=== PATIENT | female | born 1935 | race Caucasian/White ===

== ENCOUNTER → 2016-07-18 | Outpatient (CLI) | payer MEDICARE ==
--- NOTE | 2016-07-18 12:32 | REPMRS ---
Patient History The patient states she has not had a clinical breast exam in over a year. Patient is postmenopausal and has history of other cancer at age 72. Family history of pancreatic cancer in father and colorectal cancer in sister at age 50 or over. Took hormonal contraceptives for 10 years. Taking estrogen for 11 years 3 months. Digital Woman Screen Mammo: July 18, 2016 - Exam #: [id number] Bilateral CC and MLO view(s) were taken. Technologist: Vicenta Hernandez, Technologist Prior study comparison: July 18, 2015, digital woman screen mammo performed at [facility]. July 13, 2014, digital woman screen mammo performed at [facility]. July 12, 2013, bilateral bilat screen digital mammo, performed at [facility] ([facility] FINDINGS: There are scattered fibroglandular densities. There has been no change in the appearance of the mammogram from the prior studies. There is a mild amount of scattered fibroglandular density which is fairly symmetric. There is no interval development of dominant mass, architectural distortion, or clustered microcalcification suggestive of malignancy. ASSESSMENT: BI-RADS/ACR category 1 mammogram. Negative. Recommendation Routine screening mammogram in 1 year (for women over age 40). This mammogram was interpreted with the aid of an FDA-approved computer-aided dectection system. Electronically Signed By: Natan Moraes MD 07/18/16 1794
== END ==
LOC: M WHC 10:15
PROVIDERS: ATTEND Physician Assistant
DX: Z12.31 Encounter for screening mammogram for malignant neoplasm of breast (principal)

== ENCOUNTER → 2016-09-03 | Outpatient (REF) | payer MEDICARE ==
[2016-09-03 15:46] LABS: ALBUMIN 3.6 GM/DL (3.2-5.2); ALBUMIN/GLOBULIN RATIO 1.29 (1.00-1.93); ALKALINE PHOSPHATASE 71 U/L (45-117); ALT/SGPT 25 U/L (12-78); ANION GAP 10 MEQ/L (8-16); AST/SGOT 16 U/L (15-37); BILIRUBIN,TOTAL 0.6 MG/DL (0.2-1.0); BLOOD UREA NITROGEN 20 MG/DL (7-18); CALCIUM LEVEL 8.6 MG/DL (8.8-10.2); CARBON DIOXIDE LEVEL 25 MEQ/L (21-32); CHLORIDE LEVEL 102 MEQ/L (98-107); CHOLESTEROL LEVEL 191 MG/DL (<200); CREATININE FOR GFR 0.91 MG/DL (0.55-1.02); GLOMERULAR FILTRATION RATE > 60.0 (>32); GLUCOSE, FASTING 130 MG/DL (83-110); POTASSIUM SERUM 4.2 MEQ/L (3.5-5.1); SODIUM LEVEL 137 MEQ/L (136-145); TOTAL PROTEIN 6.4 GM/DL (6.4-8.2); TRIGLYCERIDES LEVEL 165 MG/DL (<150)
== END ==
LOC: M SFHCLACO 08:24
PROVIDERS: ATTEND Physician Assistant
DX: I12.9 Hypertensive chronic kidney disease with stage 1 through stage 4 chronic kidney disease, or unspecified chronic kidney disease (principal); N18.3 Chronic kidney disease, stage 3 (moderate); E78.2 Mixed hyperlipidemia

== ENCOUNTER 2016-11-07 11:19 | Outpatient (CLI) | payer MEDICARE ==
[~2016-11-07] VITALS: Ht 157.5 cm; Wt 79.8 kg
[~2016-11-07 11:19] MED LIST: ACET50TA PO; AMLO10TA2 PO; BIMA01SOL OU; BROM500T2 PO; CALC-136 PO; CHOLTAB6 PO; COMB0.2S OU; DIOV320T3 PO; ESTR1CRE PO; META48.54 PO; MULT1CHW39 PO; OMEP40CA2 PO; SENITAB2 PO; SODI5OPD OD; SPIR25TA2 PO; VITAD1000T PO; ZINCCAP PO; [UNRECOGNIZED DRUG - OTHER] OD
[2016-11-07] MEDS ORDERED: NS 1,000 ML IV SCH (14:30)
[2016-11-07] MEDS ORDERED: PROPOFOL 200 MG/20 ML VIAL As Ordered ONE (14:36)
[2016-11-07] MEDS ORDERED: LIDOCAINE 2% INJ 100 MG/5 ML SDV (FOR ANES.) As Ordered ONE (14:36)
--- NOTE | 2016-11-07 14:50 | ROOR ---
Patient Name: Sulma Baptiste Procedure Date: 11/07/2016 2:34 PM Date of : 1935 Age: 81 Room: [facility] Gender: Female Note Status: Finalized Procedure: Upper GI endoscopy Indications: Follow-up of Arcos's esophagus Providers: Isaac POLLACK MD Referring MD: DARIUS Goldman PA-C Requesting Provider: Medicines: Monitored Anesthesia Care Complications: No immediate complications. Procedure: Pre-Anesthesia Assessment: - The heart rate, respiratory rate, oxygen saturations, blood pressure, adequacy of pulmonary ventilation, and response to care were monitored throughout the procedure. The Endoscope was introduced through the mouth, and advanced to the second part of duodenum. The upper GI endoscopy was accomplished without difficulty. The patient tolerated the procedure well. Findings: The Z-line was irregular and was found 35 cm from the incisors. This was biopsied with a cold forceps for histology. The exam of the esophagus was otherwise normal. A medium-sized hiatal hernia was present. The entire examined stomach was normal. The examined duodenum was normal. Impression: - Z-line irregular, 35 cm from the incisors. Biopsied. - Medium-sized hiatal hernia. - Normal stomach. - Normal examined duodenum. Recommendation: - Await pathology results. - Due to possible side effects, I will change you from Omeprazole to Pantoprazole. Will use 20 mg daily dose for short segment barretts. - (the script was sent to your pharmacy on file) - Repeat upper endoscopy in 3 years for surveillance. Isaac Pollack MD Isaac POLLACK MD 11/07/2016 2:50:03 PM This report has been signed electronically. Number of Addenda: 0 Note Initiated On: 11/07/2016 2:34 PM Estimated Blood Loss: Estimated blood loss: none.
[2016-11-07 15:30] VITALS: BP 141/71
== END 2016-11-07 15:34 | disposition home or self-care (01) ==
LOC: M OPP 11:19
PROVIDERS: ATTEND Internal Medicine Gastroenterology
DX: K22.70 Barrett's esophagus without dysplasia (principal); K22.8 Other specified diseases of esophagus; K44.9 Diaphragmatic hernia without obstruction or gangrene; I12.9 Hypertensive chronic kidney disease with stage 1 through stage 4 chronic kidney disease, or unspecified chronic kidney disease; E78.5 Hyperlipidemia, unspecified; R01.1 Cardiac murmur, unspecified; R12 Heartburn; M19.90 Unspecified osteoarthritis, unspecified site; M81.0 Age-related osteoporosis without current pathological fracture; Z78.0 Asymptomatic menopausal state; N18.3 Chronic kidney disease, stage 3 (moderate); H40.9 Unspecified glaucoma; Z87.891 Personal history of nicotine dependence; Z88.8 Allergy status to other drugs, medicaments and biological substances; Z91.048 Other nonmedicinal substance allergy status; Z79.899 Other long term (current) drug therapy; Z80.0 Family history of malignant neoplasm of digestive organs; Z80.8 Family history of malignant neoplasm of other organs or systems

== ENCOUNTER → 2017-01-02 | Outpatient (CLI) | payer MEDICARE ==
--- NOTE | 2017-01-02 13:22 | REP ---
BILATERAL HIP SERIES: FOUR VIEWS. HISTORY: Bilateral hip pain. FINDINGS: AP and frog-leg views of each hip demonstrate mild acetabular spurring superiorly on both sides, left slightly more prominent than right. Femoral heads are smooth and rounded. Hip joint spaces are preserved. Periarticular soft tissues are unremarkable. No erosive changes seen. IMPRESSION: Mild bilateral hip joint osteoarthritis. No acute abnormality. Signed by Yusuf Moraes MD 01/02/2017 05:21 P
== END ==
LOC: M RAD 11:15
PROVIDERS: ATTEND Physician Assistant
DX: M16.0 Bilateral primary osteoarthritis of hip (principal)

== ENCOUNTER → 2017-03-04 | Outpatient (REF) | payer MEDICARE ==
[2017-03-04 16:05] LABS: ALBUMIN 3.8 GM/DL (3.2-5.2); ALBUMIN/GLOBULIN RATIO 1.27 (1.00-1.93); ALKALINE PHOSPHATASE 69 U/L (45-117); ALT/SGPT 22 U/L (12-78); ANION GAP 8 MEQ/L (8-16); AST/SGOT 16 U/L (7-37); BILIRUBIN,TOTAL 0.5 MG/DL (0.2-1.0); BLOOD UREA NITROGEN 23 MG/DL (7-18); CALCIUM LEVEL 8.9 MG/DL (8.8-10.2); CARBON DIOXIDE LEVEL 27 MEQ/L (21-32); CHLORIDE LEVEL 101 MEQ/L (98-107); CHOLESTEROL LEVEL 181 MG/DL (<200); CREATININE FOR GFR 0.89 MG/DL (0.55-1.02); GLOMERULAR FILTRATION RATE > 60.0 (>32); GLUCOSE, FASTING 117 MG/DL (83-110); POTASSIUM SERUM 4.2 MEQ/L (3.5-5.1); SODIUM LEVEL 136 MEQ/L (136-145); TOTAL PROTEIN 6.8 GM/DL (6.4-8.2); TRIGLYCERIDES LEVEL 157 MG/DL (<150)
== END ==
LOC: M SFHCLACO 08:27
PROVIDERS: ATTEND Physician Assistant
DX: E78.2 Mixed hyperlipidemia (principal); I12.9 Hypertensive chronic kidney disease with stage 1 through stage 4 chronic kidney disease, or unspecified chronic kidney disease; N18.3 Chronic kidney disease, stage 3 (moderate); R73.9 Hyperglycemia, unspecified

== ENCOUNTER → 2017-07-21 | Outpatient (CLI) | payer MEDICARE | LOC: M WHC 10:21 | DX: Z12.31 Encounter for screening mammogram for malignant neoplasm of breast (principal); R92.1 Mammographic calcification found on diagnostic imaging of breast | CPT/HCPCS: 77067 ==

== ENCOUNTER → 2017-09-02 | Outpatient (REF) | payer MEDICARE ==
[2017-09-02 15:11] LABS: ESTIMATED AVERAGE GLUCOSE 137 MG/DL (60-110); HEMOGLOBIN A1c 6.4 %
[2017-09-02 15:34] LABS: ANION GAP 8 MEQ/L (8-16); BLOOD UREA NITROGEN 19 MG/DL (7-18); CALCIUM LEVEL 8.4 MG/DL (8.8-10.2); CARBON DIOXIDE LEVEL 26 MEQ/L (21-32); CHLORIDE LEVEL 105 MEQ/L (98-107); CREATININE FOR GFR 0.89 MG/DL (0.55-1.30); GLOMERULAR FILTRATION RATE > 60.0 (>32); GLUCOSE, FASTING 123 MG/DL (70-100); POTASSIUM SERUM 4.1 MEQ/L (3.5-5.1); SODIUM LEVEL 139 MEQ/L (136-145)
[2017-09-02 15:35] LABS: ALBUMIN 3.8 GM/DL (3.2-5.2); ALBUMIN/GLOBULIN RATIO 1.23 (1.00-1.93); ALKALINE PHOSPHATASE 74 U/L (45-117); ALT/SGPT 25 U/L (12-78); AST/SGOT 15 U/L (7-37); BILIRUBIN,TOTAL 0.5 MG/DL (0.2-1.0); CHOLESTEROL LEVEL 184 MG/DL (<200); CHOLESTEROL RISK RATIO 3.118 (<5); HDL CHOLESTEROL 59 MG/DL (>40); LDL CHOLESTEROL 91.2 MG/DL (<100); NON-HDL-C 125 MG/DL; TOTAL PROTEIN 6.9 GM/DL (6.4-8.2); TRIGLYCERIDES LEVEL 169 MG/DL (<150)
== END ==
LOC: M SFHCLACO 08:12
DX: E78.2 Mixed hyperlipidemia (principal); I12.9 Hypertensive chronic kidney disease with stage 1 through stage 4 chronic kidney disease, or unspecified chronic kidney disease; N18.3 Chronic kidney disease, stage 3 (moderate); R73.9 Hyperglycemia, unspecified
CPT/HCPCS: 80053

== ENCOUNTER → 2017-10-30 | Outpatient (REF) | payer MEDICARE ==
[2017-10-30 14:57] LABS: ANION GAP 11 MEQ/L (8-16); BLOOD UREA NITROGEN 13 MG/DL (7-18); CALCIUM LEVEL 8.8 MG/DL (8.8-10.2); CARBON DIOXIDE LEVEL 25 MEQ/L (21-32); CHLORIDE LEVEL 98 MEQ/L (98-107); GLOMERULAR FILTRATION RATE > 60.0 (>32); GLUCOSE, FASTING 117 MG/DL (70-100); POTASSIUM SERUM 4.2 MEQ/L (3.5-5.1); SODIUM LEVEL 134 MEQ/L (136-145)
== END ==
LOC: M SFHCLACO 08:20
DX: R60.9 Edema, unspecified (principal); I10 Essential (primary) hypertension
CPT/HCPCS: 80048

== ENCOUNTER → 2018-03-04 | Outpatient (REF) | payer MEDICARE ==
[2018-03-04 13:36] LABS: ANION GAP 6 MEQ/L (8-16); BLOOD UREA NITROGEN 21 MG/DL (7-18); CALCIUM LEVEL 9.1 MG/DL (8.8-10.2); CARBON DIOXIDE LEVEL 30 MEQ/L (21-32); CHLORIDE LEVEL 101 MEQ/L (98-107); CREATININE FOR GFR 0.88 MG/DL (0.55-1.30); GLOMERULAR FILTRATION RATE > 60.0 (>32); GLUCOSE, FASTING 123 MG/DL (70-100); POTASSIUM SERUM 4.6 MEQ/L (3.5-5.1); SODIUM LEVEL 137 MEQ/L (136-145)
== END ==
LOC: M LAB REF 13:05
DX: N18.3 Chronic kidney disease, stage 3 (moderate) (principal)
CPT/HCPCS: 80048

== ENCOUNTER → 2018-03-17 | Outpatient (REF) | payer MEDICARE ==
[2018-03-17 13:28] LABS: BASO # 0.1 10^3/uL (0.0-0.2); BASO % 0.5 % (0.0-1.0); EOS # 0.1 10^3/uL (0.0-0.50); EOS % 0.5 % (0.0-3.0); HEMATOCRIT 39.8 % (36.0-47.0); HEMOGLOBIN 13.4 g/dl (12.0-15.5); IMMATURE GRANULOCYTE % 0.7 % (0-3.0); LYMPH # 1.3 10^3/uL (1.5-4.5); LYMPH % 12.1 % (24.0-44.0); MEAN CORPUSCULAR HEMOGLOBIN 32.3 pg (27.0-33.0); MEAN CORPUSCULAR HGB CONC 33.7 g/dl (32.0-36.5); MEAN CORPUSCULAR VOLUME 95.9 fl (80.0-96.0); MONO # 1.1 10^3/uL (0.0-0.8); MONO % 10.2 % (0.0-5.0); NEUTROPHILS # 8.3 10^3/uL (1.8-7.7); PLATELET COUNT, AUTOMATED 338 10^3/uL (150-450); RED BLOOD COUNT 4.15 10^6/uL (4.00-5.40); RED CELL DISTRIBUTION WIDTH 12.4 % (11.5-14.5)
[2018-03-17 13:50] LABS: C REACTIVE PROTEIN QUANTITATIV 1.96 MG/DL (0.00-0.30); RHEUMATOID FACTOR QUANT < 10.0 IU/ML (<15.0)
[2018-03-17 13:50] LABS: URIC ACID 6.6 MG/DL (2.6-6.0)
[2018-03-17 14:05] LABS: ERYTHROCYTE SEDIMENTATION RATE 15 mm/hr (0-30)
[2018-03-19 00:31] LABS: CYCLIC CITRULLINATED PEPTIDE 6 units (0-19)
[2018-03-19 00:31] LABS: ANA (HEP2) Negative (.); Lyme Disease IgG/IgM Antibodie <0.91 ISR (0.00-0.90); Lyme Disease IgM Ab Quantitati <0.80 index (0.00-0.79)
== END ==
LOC: M SFHCADAM 11:02
DX: M25.511 Pain in right shoulder (principal); M25.512 Pain in left shoulder
CPT/HCPCS: 84550

== ENCOUNTER → 2018-06-29 | Outpatient (REF) | payer MEDICARE ==
[~2018-06-29] MED LIST changes: -ACET50TA PO; -AMLO10TA2 PO; +AMLO10TA5 PO; +MAPA500T2 PO; +SPIR-10 PO; -SPIR25TA2 PO
== END ==
LOC: M SFHCPLAZ 15:45
PROVIDERS: ATTEND Dermatology
DX: C44.529 Squamous cell carcinoma of skin of other part of trunk (principal)

== ENCOUNTER → 2018-07-02 | Outpatient (CLI) | payer MEDICARE ==
[~2018-07-02] MED LIST changes: +SODI3.5O3 OD; -[UNRECOGNIZED DRUG - OTHER] OD
--- NOTE | 2018-07-02 15:59 | REP ---
Clinical: Arthritis. Technique: Internal rotation, external rotation, and Y view of the right and left shoulder. Findings: Bilateral shoulders demonstrate mild cortical irregularity and very subtle spurring at the acromioclavicular joints along with subtle blunting to the ossified glenoid rims. Findings are relatively symmetric. The subacromial spaces are normal. No periarticular calcifications or loose bodies are identified. Impression: Mild degenerative changes primarily involving the acromioclavicular joints. Electronically Signed by Jori Bedolla MD 07/02/2018 03:50 P
--- NOTE | 2018-07-02 16:02 | REP ---
Clinical: Arthritis. Technique: AP, lateral, bilateral oblique views of the right and left hand. Findings: Generalized age-related osteodystrophy is appreciated bilaterally. Moderate relatively symmetric osteoarthritic degenerative changes are appreciated. Findings include subchondral sclerosis, joint space narrowing, and subtle marginal spurring involving the distal interphalangeal joints and to a somewhat lesser extent the proximal interphalangeal joints. Increase sclerosis along the radial surface is also noted with mild radiocarpal joint space narrowing (right greater than left). Remainder examination appears relatively normal for age. There also appears to be small old right ulnar styloid fracture. Impression: Essentially mild/moderate osteoarthritic changes given the patient's age. Electronically Signed by Jori Bedolla MD 07/02/2018 03:53 P
== END ==
LOC: M SMT 15:16
PROVIDERS: ATTEND Internal Medicine Rheumatology
DX: M15.9 Polyosteoarthritis, unspecified (principal)

== ENCOUNTER → 2018-07-02 | Outpatient (REF) | payer MEDICARE ==
[~2018-07-02] MED LIST changes: -MULT1CHW39 PO; +MULT200T7 PO
[2018-07-02 18:11] LABS: ALT/SGPT 19 U/L (12-78); BILIRUBIN,TOTAL 0.3 MG/DL (0.2-1.0); BLOOD UREA NITROGEN 26 MG/DL (7-18); C REACTIVE PROTEIN QUANTITATIV 0.55 MG/DL (0.00-0.30); CALCIUM LEVEL 8.9 MG/DL (8.8-10.2); CARBON DIOXIDE LEVEL 28 MEQ/L (21-32); CHLORIDE LEVEL 102 MEQ/L (98-107); GLOMERULAR FILTRATION RATE 56.4 (>32); GLUCOSE, FASTING 114 MG/DL (70-100); POTASSIUM SERUM 4.5 MEQ/L (3.5-5.1); RHEUMATOID FACTOR QUANT < 10.0 IU/ML (<15.0); SODIUM LEVEL 137 MEQ/L (136-145)
[2018-07-02 18:19] LABS: BASO # 0.1 10^3/uL (0.0-0.2); BASO % 0.6 % (0.0-1.0); EOS # 0.2 10^3/uL (0.0-0.50); EOS % 2.3 % (0.0-3.0); HEMATOCRIT 39.1 % (36.0-47.0); LYMPH # 2.8 10^3/uL (1.5-4.5); LYMPH % 28.8 % (24.0-44.0); MEAN CORPUSCULAR HEMOGLOBIN 32.1 pg (27.0-33.0); MEAN CORPUSCULAR HGB CONC 33.2 g/dl (32.0-36.5); MEAN CORPUSCULAR VOLUME 96.5 fl (80.0-96.0); MONO % 10.2 % (0.0-5.0); NEUTROPHILS # 5.5 10^3/uL (1.8-7.7); NEUTROPHILS % 57.3 % (36.0-66.0); PLATELET COUNT, AUTOMATED 315 10^3/uL (150-450); RED BLOOD COUNT 4.05 10^6/uL (4.00-5.40); WHITE BLOOD COUNT 9.7 10^3/uL (4.0-10.0)
[2018-07-02 20:02] LABS: ERYTHROCYTE SEDIMENTATION RATE 8 mm/hr (0-30)
== END ==
LOC: M SFHCPLAZ 14:55
PROVIDERS: ATTEND Internal Medicine Rheumatology
DX: M15.9 Polyosteoarthritis, unspecified (principal)

== ENCOUNTER → 2018-07-23 | Outpatient (CLI) | payer MEDICARE ==
--- NOTE | 2018-07-23 11:04 | REPMRS ---
Patient History The patient states she has not had a clinical breast exam in over a year. Patient is postmenopausal and has history of melanoma at age 72. Family history of colorectal cancer at age 50 or over in sister, pancreatic cancer in father. Took hormonal contraceptives for 10 years. Took estrogen for 12 years 3 months. 3D TOMOSYNTHESIS WAS PERFORMED. Digital Woman Screen Mammo: July 23, 2018 - Exam #: [id number] Bilateral CC and MLO view(s) were taken. Technologist: Gerri Troy, Technologist Prior study comparison: July 21, 2017, digital woman screen mammo performed at [facility]. July 18, 2016, digital woman screen mammo performed at [facility]. FINDINGS: There are scattered fibroglandular densities. There has been no change in the appearance of the mammogram from the prior studies. There is a mild amount of residual fibroglandular tissue which is fairly symmetric. There is no interval development of dominant mass, architectural distortion, or clustered microcalcification suggestive of malignancy. Assessment: BI-RADS/ACR category 1 mammogram. Negative Mammogram. Recommendation Routine screening mammogram in 1 year (for women over age 40). This mammogram was interpreted with the aid of an FDA-approved computer-aided dectection system. Electronically Signed By: Vishnu Amos MD 07/23/18 [id number]
== END ==
LOC: M WHC 09:45
PROVIDERS: ATTEND Physician Assistant Medical
DX: Z12.31 Encounter for screening mammogram for malignant neoplasm of breast (principal); Z78.0 Asymptomatic menopausal state; Z85.828 Personal history of other malignant neoplasm of skin; Z80.0 Family history of malignant neoplasm of digestive organs; Z92.0 Personal history of contraception; Z92.23 Personal history of estrogen therapy

== ENCOUNTER → 2018-08-28 | Outpatient (REF) | payer MEDICARE ==
[2018-08-28 13:45] LABS: BLOOD UREA NITROGEN 20 MG/DL (7-18); CALCIUM LEVEL 8.8 MG/DL (8.8-10.2); CARBON DIOXIDE LEVEL 26 MEQ/L (21-32); CHLORIDE LEVEL 101 MEQ/L (98-107); CREATININE FOR GFR 0.88 MG/DL (0.55-1.30); GLOMERULAR FILTRATION RATE > 60.0 (>32); GLUCOSE, FASTING 121 MG/DL (70-100); POTASSIUM SERUM 4.5 MEQ/L (3.5-5.1); SODIUM LEVEL 136 MEQ/L (136-145)
== END ==
LOC: M LABDRWAD 12:58
PROVIDERS: ATTEND Internal Medicine
DX: N18.3 Chronic kidney disease, stage 3 (moderate) (principal)

== ENCOUNTER → 2018-08-28 | Outpatient (REF) | payer MEDICARE ==
[2018-08-28 12:49] LABS: BASO # 0.1 10^3/uL (0.0-0.2); BASO % 0.8 % (0.0-1.0); EOS # 0.2 10^3/uL (0.0-0.50); EOS % 2.3 % (0.0-3.0); HEMATOCRIT 38.6 % (36.0-47.0); HEMOGLOBIN 13.1 g/dl (12.0-15.5); LYMPH # 1.6 10^3/uL (1.5-4.5); LYMPH % 24.5 % (24.0-44.0); MEAN CORPUSCULAR HEMOGLOBIN 31.5 pg (27.0-33.0); MEAN CORPUSCULAR HGB CONC 33.9 g/dl (32.0-36.5); MEAN CORPUSCULAR VOLUME 92.8 fl (80.0-96.0); MONO # 0.6 10^3/uL (0.0-0.8); MONO % 9.5 % (0.0-5.0); NEUTROPHILS # 4.2 10^3/uL (1.8-7.7); NEUTROPHILS % 62.4 % (36.0-66.0); PLATELET COUNT, AUTOMATED 318 10^3/uL (150-450); RED BLOOD COUNT 4.16 10^6/uL (4.00-5.40); WHITE BLOOD COUNT 6.7 10^3/uL (4.0-10.0)
[2018-08-28 13:39] LABS: ALBUMIN 3.6 GM/DL (3.2-5.2); ALT/SGPT 21 U/L (12-78); BILIRUBIN,TOTAL 0.8 MG/DL (0.2-1.0); BLOOD UREA NITROGEN 20 MG/DL (7-18); CALCIUM LEVEL 8.9 MG/DL (8.8-10.2); CARBON DIOXIDE LEVEL 27 MEQ/L (21-32); CHLORIDE LEVEL 101 MEQ/L (98-107); CHOLESTEROL LEVEL 187 MG/DL (<200); CREATININE FOR GFR 0.92 MG/DL (0.55-1.30); GLOMERULAR FILTRATION RATE > 60.0 (>32); GLUCOSE, FASTING 124 MG/DL (70-100); HDL CHOLESTEROL 57 MG/DL (>40); LDL CHOLESTEROL 98 MG/DL (<100); NON-HDL-C 130 MG/DL; POTASSIUM SERUM 4.4 MEQ/L (3.5-5.1); SODIUM LEVEL 136 MEQ/L (136-145); TOTAL PROTEIN 6.9 GM/DL (6.4-8.2); TRIGLYCERIDES LEVEL 162 MG/DL (<150)
== END ==
LOC: M SFHCADAM 09:48
PROVIDERS: ATTEND Physician Assistant Medical
DX: E78.2 Mixed hyperlipidemia (principal); K21.9 Gastro-esophageal reflux disease without esophagitis; N18.3 Chronic kidney disease, stage 3 (moderate)

== ENCOUNTER → 2018-09-25 | Outpatient (REF) | payer MEDICARE | LOC: M LAB REF 12:00 | PROVIDERS: ATTEND Physician Assistant Medical | DX: R19.4 Change in bowel habit (principal) ==

== ENCOUNTER → 2019-03-03 | Outpatient (REF) | payer MEDICARE ==
[~2019-03-03] MED LIST changes: +CHOL100029 PO; -OMEP40CA2 PO; +OMEP40CA97 PO; -VITAD1000T PO
== END ==
LOC: M SFHCPLAZ 16:28
PROVIDERS: ATTEND Physician Assistant Medical
DX: R19.7 Diarrhea, unspecified (principal)

== ENCOUNTER → 2019-03-12 | Outpatient (REF) | payer MEDICARE ==
[2019-03-12 13:40] LABS: BASO % 0.4 % (0.0-1.0); EOS # 0.2 10^3/uL (0.0-0.5); EOS % 1.9 % (0.0-3.0); HEMATOCRIT 40.2 % (36.0-47.0); HEMOGLOBIN 13.1 g/dl (12.0-15.5); LYMPH # 1.6 10^3/uL (1.5-5.0); LYMPH % 17.6 % (24.0-44.0); MEAN CORPUSCULAR HEMOGLOBIN 31.9 pg (27.0-33.0); MEAN CORPUSCULAR HGB CONC 32.6 g/dl (32.0-36.5); MEAN CORPUSCULAR VOLUME 97.8 fl (80.0-96.0); MONO # 0.7 10^3/uL (0.0-0.8); MONO % 7.9 % (0.0-5.0); NEUTROPHILS # 6.7 10^3/uL (1.5-8.5); NEUTROPHILS % 71.8 % (36.0-66.0); PLATELET COUNT, AUTOMATED 312 10^3/uL (150-450); RED BLOOD COUNT 4.11 10^6/uL (4.00-5.40); WHITE BLOOD COUNT 9.3 10^3/uL (4.0-10.0)
[2019-03-12 13:54] LABS: ALBUMIN 3.5 GM/DL (3.2-5.2); ALT/SGPT 17 U/L (12-78); BILIRUBIN,TOTAL 0.6 MG/DL (0.2-1.0); BLOOD UREA NITROGEN 16 MG/DL (7-18); CARBON DIOXIDE LEVEL 26 MEQ/L (21-32); CHLORIDE LEVEL 103 MEQ/L (98-107); CHOLESTEROL LEVEL 172 MG/DL (<200); CHOLESTEROL RISK RATIO 3.127 (<5); CREATININE FOR GFR 0.89 MG/DL (0.55-1.30); GLOMERULAR FILTRATION RATE > 60.0 (>32); GLUCOSE, FASTING 117 MG/DL (70-100); HDL CHOLESTEROL 55 MG/DL (>40); LDL CHOLESTEROL 87 MG/DL (<100); NON-HDL-C 117 MG/DL; POTASSIUM SERUM 4.3 MEQ/L (3.5-5.1); SODIUM LEVEL 137 MEQ/L (136-145); THYROID STIMULATING HORMONE 0.556 uIU/ML (0.358-3.740); TOTAL PROTEIN 6.5 GM/DL (6.4-8.2); TRIGLYCERIDES LEVEL 150 MG/DL (<150)
[2019-03-12 14:10] LABS: HEMOGLOBIN A1c 6.2 %
== END ==
LOC: M SFHCADAM 09:30
PROVIDERS: ATTEND Physician Assistant Medical
DX: R73.01 Impaired fasting glucose (principal); N18.3 Chronic kidney disease, stage 3 (moderate); E07.9 Disorder of thyroid, unspecified; E78.00 Pure hypercholesterolemia, unspecified

== ENCOUNTER → 2019-04-06 | Outpatient (REF) | payer MEDICARE | LOC: M LAB REF 17:19 | PROVIDERS: ATTEND Physician Assistant Medical | DX: R19.7 Diarrhea, unspecified (principal) ==

== ENCOUNTER → 2019-04-06 | Outpatient (REF) | payer MEDICARE | LOC: M LAB REF 17:42 → M LABDRWAD 17:42 | PROVIDERS: ATTEND Physician Assistant Medical | DX: R19.7 Diarrhea, unspecified (principal) ==

== ENCOUNTER → 2019-04-06 | Outpatient (REF) | payer MEDICARE ==
[2019-04-06 18:31] LABS: CALCIUM LEVEL 8.5 MG/DL (8.8-10.2); CREATININE FOR GFR 1.21 MG/DL (0.55-1.30); GLOMERULAR FILTRATION RATE 45.1 (>32); POTASSIUM SERUM 4.3 MEQ/L (3.5-5.1)
== END ==
LOC: M LABDRWAD 17:45
PROVIDERS: ATTEND Internal Medicine
DX: N18.2 Chronic kidney disease, stage 2 (mild) (principal)

== ENCOUNTER → 2019-04-29 | Outpatient (CLI) | payer MEDICARE ==
[~2019-04-29] MED LIST changes: +GLUCAGON FOR INJ 1 MG VIAL (J1610) As Ordered ONE; +ISOVUE-370 76% 100ML VIAL (Q9967) As Ordered ONE; +VoLumen 0.1% SUSPENSION 450ML BOTTLE As Ordered ONE
--- NOTE | 2019-04-29 15:09 | REP ---
CT ENTEROGRAPHY WITH IV CONTRAST: CT enterography abdomen and pelvis performed utilizing oral contrast as per hospital protocol as well as the intravenous administration of 100 mL of Isovue 370. Sagittal and coronal reconstruction images are performed. Comparison made with prior CT abdomen and pelvis 10/21/2006. Visualized lung bases demonstrate scattered mild interstitial fibrotic changes. There is a small hiatal hernia. The liver demonstrates no mass. The spleen is normal in size with no intrinsic abnormality. The right adrenal gland is normal. The left adrenal gland demonstrates diffuse thickening as on prior study. This is benign. In the head of the pancreas there are two cystic structures seen. An oval cystic structure posterior to the superior mesenteric vein in the uncinate process measures 15 x 10 mm. More laterally and inferiorly a cystic structure in the head of the head of the pancreas measures approximately 9 mm in diameter. No biliary dilatation is seen. There is mild right renal cortical thinning. There is mild left renal cortical thinning. There are multiple small cysts of the left kidney, the largest is in the upper pole and measures 1.5 cm in diameter. There is no hydronephrosis bilaterally. There is mild scattered atherosclerotic calcification of the abdominal aorta without aneurysm. There is no adenopathy, free air or free fluid. No bowel wall thickening is seen. There is mild sigmoid diverticulosis without evidence of acute diverticulitis or colitis. The patient has had a prior hysterectomy. Urinary bladder is mildly distended and unremarkable. There is no pelvic mass. There are degenerative changes of the spine. IMPRESSION: Small hiatal hernia. Sigmoid diverticulosis. No acute diverticulitis. No bowel wall thickening is seen. Benign appearing left adrenal gland thickening. Two small cystic structures in the head and uncinate process of the pancreas. Recommend MRI of the pancreas to further evaluate. Electronically Signed by Vishnu Amos MD 04/30/2019 12:35 P
== END ==
LOC: M RAD 09:48
PROVIDERS: ATTEND Physician Assistant Medical
DX: R63.4 Abnormal weight loss (principal); R19.7 Diarrhea, unspecified; R19.4 Change in bowel habit
CPT/HCPCS: 74177; J1610; Q9967

== ENCOUNTER → 2019-05-03 | Outpatient (REF) | payer MEDICARE ==
[~2019-05-03] MED LIST changes: -GLUCAGON FOR INJ 1 MG VIAL (J1610) As Ordered ONE; -ISOVUE-370 76% 100ML VIAL (Q9967) As Ordered ONE; -VoLumen 0.1% SUSPENSION 450ML BOTTLE As Ordered ONE
[2019-05-03 13:41] LABS: BLOOD UREA NITROGEN 17 MG/DL (7-18); CALCIUM LEVEL 9.1 MG/DL (8.8-10.2); CARBON DIOXIDE LEVEL 28 MEQ/L (21-32); CHLORIDE LEVEL 101 MEQ/L (98-107); CREATININE FOR GFR 0.91 MG/DL (0.55-1.30); GLOMERULAR FILTRATION RATE > 60.0 (>32); GLUCOSE, FASTING 127 MG/DL (70-100); POTASSIUM SERUM 4.5 MEQ/L (3.5-5.1); SODIUM LEVEL 135 MEQ/L (136-145)
== END ==
LOC: M LABDRWAD 13:03
PROVIDERS: ATTEND Physician Assistant Medical
DX: N18.3 Chronic kidney disease, stage 3 (moderate) (principal)

== ENCOUNTER → 2019-05-12 | Outpatient (CLI) | payer MEDICARE ==
[~2019-05-12] MED LIST changes: +FAMO20TA PO; +HEAL1TAB2 PO; +IRBE75TA4 PO; +OYST1TAB PO; +PROT20TA11 PO; +RA T500C2 PO; +TORS10TA3 PO; +VITA100054 PO; +VITA500T10 PO; +[UNRECOGNIZED DRUG - OTHER] PO; +[UNRECOGNIZED DRUG - OTHER] PO; +cbd PO
== END ==
LOC: M LABDRWAD 09:46
PROVIDERS: ATTEND Physician Assistant Medical
DX: R93.3 Abnormal findings on diagnostic imaging of other parts of digestive tract (principal); R19.7 Diarrhea, unspecified; R63.4 Abnormal weight loss

== ENCOUNTER → 2019-05-17 | Outpatient (CLI) | payer MEDICARE ==
[~2019-05-17] MED LIST changes: +PROHANCE 279.3MG/ML 15ML VIAL (A9576) As Ordered ONE
--- NOTE | 2019-05-17 15:25 | REP ---
MRI abdomen and pancreas without and with IV contrast: History: Abnormal findings in the pancreas on CT study 29 April 2019. Gadolinium enhancement dose 13 mL of intravenous ProHance. MRI technique: Axial and coronal T1 and T2-weighted scans include spin-echo, fast spin echo, in and [id number], and dynamically acquired sequential post contrast images. MRI findings: Pre injection T2-weighted scans show no filling defect in the gallbladder. There is no focal liver lesion. Intrahepatic and extrahepatic bile ducts are normal in size. The main pancreatic duct is mildly prominent, 3-4 mm in greatest diameter. There are two small simple-appearing cysts in the head of the pancreas, one in the uncinate lobe and the other in the pancreatic head. The uncinate process cyst measures 2.0 cm x 1.3 cm x 1.0 cm. No pancreatic mass lesion is observed. On postcontrast images there is no contrast enhancement in the cystic lesions. No adrenal lesion is observed. There is a 12 mm area of contrast enhancement in the posterior segment of the right lobe of the liver consistent with a small hemangioma. This is not visible on the precontrast T2-weighted images. There is no evidence of adenopathy. No renal mass lesion is observed. Impression: There are two small simple appearing cysts in the head of the pancreas the largest of which measures 2.0 cm in greatest diameter. Small hypervascular liver nodule 12 mm in diameter consistent with hemangioma. Electronically Signed by Yusuf Moraes MD 05/17/2019 04:18 P
== END ==
LOC: M RAD 10:48
PROVIDERS: ATTEND Physician Assistant Medical
DX: N63.42 Unspecified lump in left breast, subareolar (principal); R93.3 Abnormal findings on diagnostic imaging of other parts of digestive tract
CPT/HCPCS: 74183; A9576

== ENCOUNTER 2019-05-24 08:00 | Day surgery (SDC) | payer MEDICARE ==
[~2019-05-24] VITALS: Ht 157.5 cm; Wt 67.6 kg
[~2019-05-24 08:00] MED LIST changes: +NS 1,000 ML IV ONE; -PROHANCE 279.3MG/ML 15ML VIAL (A9576) As Ordered ONE
[2019-05-24] MEDS ORDERED: propofoL 200 MG/20 ML VIAL As Ordered ONE (08:08)
[2019-05-24] MEDS ORDERED: LIDOCAINE 2% INJ 100 MG/5 ML SDV (FOR ANES.) As Ordered ONE (08:08)
--- NOTE | 2019-05-24 09:49 | ROOR ---
Patient Name: Sulma Baptiste Procedure Date: 05/24/2019 9:38 AM Date of : 1935 Age: 83 Room: [facility] Gender: Female Note Status: Finalized Procedure: Upper GI endoscopy Indications: Weight loss Providers: Isaac MARCH MD Referring MD: DARIUS Weeks Requesting Provider: Medicines: Monitored Anesthesia Care Complications: No immediate complications. Procedure: Pre-Anesthesia Assessment: - The heart rate, respiratory rate, oxygen saturations, blood pressure, adequacy of pulmonary ventilation, and response to care were monitored throughout the procedure. The Endoscope was introduced through the mouth, and advanced to the second part of duodenum. The upper GI endoscopy was accomplished without difficulty. The patient tolerated the procedure well. Findings: The examined esophagus was normal. The Z-line was variable and was found 35 cm from the incisors. A small hiatal hernia was present. The entire examined stomach was normal. The examined duodenum was normal. Impression: - Normal esophagus. Z-line variable, 35 cm from the incisors. - Small hiatal hernia. - Normal stomach. - Normal examined duodenum. - No specimens collected. Recommendation: - Observe patient's clinical course. Isaac March MD Isaac MARCH MD 05/24/2019 9:49:19 AM Electronically signed by Isaac MARCH MD Number of Addenda: 0 Note Initiated On: 05/24/2019 9:38 AM Estimated Blood Loss: Estimated blood loss: none.
--- NOTE | 2019-05-24 10:05 | ROOR ---
Patient Name: Sulma Baptiste Procedure Date: 05/24/2019 9:39 AM Date of : 1935 Age: 83 Room: [facility] Gender: Female Note Status: Finalized Procedure: Colonoscopy Indications: Change in bowel habits, Weight loss Providers: Isaac MARCH MD Referring MD: DARIUS Weeks Requesting Provider: Medicines: Monitored Anesthesia Care Complications: No immediate complications. Procedure: Pre-Anesthesia Assessment: - The heart rate, respiratory rate, oxygen saturations, blood pressure, adequacy of pulmonary ventilation, and response to care were monitored throughout the procedure. The Colonoscope was introduced through the anus and advanced to 10 cm into the ileum. The colonoscopy was performed without difficulty. The patient tolerated the procedure well. The quality of the bowel preparation was good. Findings: The perianal and digital rectal examinations were normal. Multiple medium-mouthed diverticula were found in the sigmoid colon. Internal hemorrhoids were found during retroflexion. The hemorrhoids were medium-sized. Retroflexion in the right colon was performed. The entire examined colon appeared normal on direct and retroflexion views. The terminal ileum appeared normal. Biopsies for histology were taken with a cold forceps for evaluation of microscopic colitis. Impression: - Moderate diverticulosis in the sigmoid colon. - Internal hemorrhoids. - The entire examined colon is otherwise normal on direct and retroflexion views. - The examined portion of the ileum was normal. - Biopsies were taken with a cold forceps for evaluation of microscopic colitis. Recommendation: - Telephone endoscopist for pathology results in 2 weeks. - Use fiber, for example Citrucel, Fibercon, Konsyl or Metamucil. Isaac March MD Isaac MARCH MD 05/24/2019 10:05:30 AM Electronically signed by Isaac MARCH MD Number of Addenda: 0 Note Initiated On: 05/24/2019 9:39 AM Estimated Blood Loss: Estimated blood loss: none.
[2019-05-24 10:30] VITALS: BP 180/76
== END 2019-05-24 10:42 | disposition home or self-care (01) ==
LOC: M OPP 08:00
PROVIDERS: ATTEND Internal Medicine Gastroenterology
DX: K64.8 Other hemorrhoids (principal); K57.30 Diverticulosis of large intestine without perforation or abscess without bleeding; K52.89 Other specified noninfective gastroenteritis and colitis; K22.8 Other specified diseases of esophagus; R63.4 Abnormal weight loss; N18.3 Chronic kidney disease, stage 3 (moderate); Z79.899 Other long term (current) drug therapy; Z88.8 Allergy status to other drugs, medicaments and biological substances; Z87.891 Personal history of nicotine dependence; Z91.013 Allergy to seafood

== ENCOUNTER → 2019-09-07 | Outpatient (REF) | payer MEDICARE ==
[~2019-09-07] MED LIST changes: -NS 1,000 ML IV ONE
[2019-09-07 13:18] LABS: BASO # 0.1 10^3/uL (0.0-0.2); BASO % 1.3 % (0.0-1.0); EOS # 0.3 10^3/uL (0.0-0.5); EOS % 4.3 % (0.0-3.0); HEMATOCRIT 38.8 % (36.0-47.0); LYMPH # 2.2 10^3/uL (1.5-5.0); LYMPH % 32.1 % (24.0-44.0); MEAN CORPUSCULAR HEMOGLOBIN 31.9 pg (27.0-33.0); MEAN CORPUSCULAR HGB CONC 33.5 g/dl (32.0-36.5); MEAN CORPUSCULAR VOLUME 95.1 fl (80.0-96.0); MONO # 0.7 10^3/uL (0.0-0.8); MONO % 9.8 % (0.0-5.0); NEUTROPHILS # 3.6 10^3/uL (1.5-8.5); NEUTROPHILS % 52.2 % (36.0-66.0); PLATELET COUNT, AUTOMATED 300 10^3/uL (150-450); RED BLOOD COUNT 4.08 10^6/uL (4.00-5.40); WHITE BLOOD COUNT 6.9 10^3/uL (4.0-10.0)
[2019-09-07 13:53] LABS: BLOOD UREA NITROGEN 13 MG/DL (7-18); CREATININE FOR GFR 0.81 MG/DL (0.55-1.30); GLUCOSE, FASTING 112 MG/DL (70-100)
[2019-09-07 13:54] LABS: ALBUMIN 3.6 GM/DL (3.2-5.2); ALT/SGPT 31 U/L (12-78); BILIRUBIN,TOTAL 0.6 MG/DL (0.2-1.0); CALCIUM LEVEL 8.7 MG/DL (8.8-10.2); CARBON DIOXIDE LEVEL 26 MEQ/L (21-32); CHLORIDE LEVEL 104 MEQ/L (98-107); CHOLESTEROL LEVEL 174 MG/DL (<200); CHOLESTEROL RISK RATIO 2.761 (<5); GLOMERULAR FILTRATION RATE > 60.0 (>32); HDL CHOLESTEROL 63 MG/DL (>40); LDL CHOLESTEROL 87 MG/DL (<100); NON-HDL-C 111 MG/DL; POTASSIUM SERUM 4.5 MEQ/L (3.5-5.1); SODIUM LEVEL 138 MEQ/L (136-145); THYROID STIMULATING HORMONE 0.513 uIU/ML (0.358-3.740); TOTAL PROTEIN 6.5 GM/DL (6.4-8.2); TRIGLYCERIDES LEVEL 120 MG/DL (<150)
[2019-09-07 13:57] LABS: HEMOGLOBIN A1c 5.7 %; MAU/CREAT RATIO 26.3 MCG/MG (0.0-30.0)
== END ==
LOC: M SFHCADAM 08:25
PROVIDERS: ATTEND Physician Assistant Medical
DX: E78.2 Mixed hyperlipidemia (principal); K21.9 Gastro-esophageal reflux disease without esophagitis; N18.3 Chronic kidney disease, stage 3 (moderate); K76.0 Fatty (change of) liver, not elsewhere classified; R73.03 Prediabetes

== ENCOUNTER → 2019-09-22 | Outpatient (REF) | payer MEDICARE ==
[2019-09-22 19:09] LABS: APPEARANCE, URINE CLEAR (CLEAR); BACTERIA, URINE AUTO NEGATIVE (NEGATIVE); BILIRUBIN, URINE AUTO NEGATIVE (NEGATIVE); BLOOD, URINE BLOOD NEGATIVE (NEGATIVE); COLOR, URINE STRAW (YELLOW); GLUCOSE, URINE (UA) AUTO NEGATIVE (NEGATIVE); KETONE, URINE AUTO NEGATIVE (NEGATIVE); LEUKOCYTE ESTERASE, URINE AUTO 1+ (NEGATIVE); NITRITE, URINE AUTO NEGATIVE (NEGATIVE); PROTEIN, URINE AUTO NEGATIVE (NEGATIVE); RBC, URINE AUTO 1 /HPF (0-3); SPECIFIC GRAVITY URINE AUTO 1.004 (1.002-1.035); SQUAMOUS EPITHELIAL CELL UR AU 0 /HPF (0-6); UROBILINOGEN, URINE AUTO 0.2 mg/dL (0.0-2.0); WBC, URINE AUTO 11 /HPF (0-3)
== END ==
LOC: M SFHCADAM 17:35
PROVIDERS: ATTEND Physician Assistant
DX: R35.0 Frequency of micturition (principal)

== ENCOUNTER → 2019-10-27 | Outpatient (CLI) | payer MEDICARE ==
[~2019-10-27] MED LIST changes: -AMLO10TA5 PO; +AMLO1TAB25 PO
--- NOTE | 2019-11-21 09:36 | REPMRS ---
Patient History The patient states she has not had a clinical breast exam in over a year. Patient is postmenopausal and has history of other cancer at age 72. Family history of colorectal cancer at age 50 or over in sister, pancreatic cancer in father. Took hormonal contraceptives for 10 years. Took estrogen for 12 years 3 months. Digital Woman Screen Mammo: October 27, 2019 - Exam #: [id number] Bilateral CC and MLO view(s) were taken. Technologist: Thalia Garcia, Technologist Prior study comparison: July 23, 2018, bilateral digital woman screen mammo performed at [facility]. July 21, 2017, digital woman screen mammo performed at [facility]. July 18, 2016, digital woman screen mammo performed at [facility]. FINDINGS: There are scattered fibroglandular densities. The Volpara volumetric breast density category is:B. There has been no change in the appearance of the mammogram from the prior studies. There is a mild amount of scattered fibroglandular density which is fairly symmetric. There is no interval development of dominant mass, architectural distortion, or grouped microcalcification suggestive of malignancy. 3-D tomosynthesis shows no additional findings. Report was delayed due to a protracted computer network disruption experienced by this facility. Assessment: BI-RADS/ACR category 1 mammogram. Negative Mammogram. Recommendation Routine screening mammogram of both breasts in 1 year (for women over age 40). This mammogram was interpreted with the aid of an FDA-approved computer-aided dectection system. Electronically Signed By: Natan Moraes MD 11/21/19 0933
== END ==
LOC: M WHC 17:12
PROVIDERS: ATTEND Physician Assistant
DX: Z12.31 Encounter for screening mammogram for malignant neoplasm of breast (principal); Z78.0 Asymptomatic menopausal state; Z80.0 Family history of malignant neoplasm of digestive organs; Z92.0 Personal history of contraception

== ENCOUNTER → 2020-01-10 | Outpatient (REF) | payer MEDICARE | LOC: M LAB REF 18:08 | PROVIDERS: ATTEND Dermatology | DX: L57.0 Actinic keratosis (principal) ==

== ENCOUNTER → 2020-03-01 | Outpatient (REF) | payer MEDICARE ==
[2020-03-01 13:45] LABS: HEMOGLOBIN 12.8 g/dl (12.0-15.5); MEAN CORPUSCULAR HGB CONC 32.8 g/dl (32.0-36.5); MEAN CORPUSCULAR VOLUME 97.5 fl (80.0-96.0); PLATELET COUNT, AUTOMATED 311 10^3/uL (150-450); WHITE BLOOD COUNT 7.3 10^3/uL (4.0-10.0)
[2020-03-01 14:24] LABS: ALBUMIN 3.8 GM/DL (3.2-5.2); ALT/SGPT 19 U/L (12-78); BILIRUBIN,TOTAL 0.7 MG/DL (0.2-1.0); BLOOD UREA NITROGEN 15 MG/DL (7-18); CALCIUM LEVEL 8.9 MG/DL (8.8-10.2); CARBON DIOXIDE LEVEL 27 MEQ/L (21-32); CHLORIDE LEVEL 102 MEQ/L (98-107); CREATININE FOR GFR 0.83 MG/DL (0.55-1.30); FOLATE 22.8 NG/ML; FREE T4 1.07 NG/DL (0.76-1.46); GLOMERULAR FILTRATION RATE > 60.0 (>32); GLUCOSE, FASTING 109 MG/DL (70-100); POTASSIUM SERUM 4.5 MEQ/L (3.5-5.1); SODIUM LEVEL 134 MEQ/L (136-145); THYROID STIMULATING HORMONE 0.633 uIU/ML (0.358-3.740); TOTAL PROTEIN 6.6 GM/DL (6.4-8.2); VITAMIN B12 LEVEL 1115 PG/ML
[2020-03-01 14:27] LABS: HEMOGLOBIN A1c 5.6 %
== END ==
LOC: M SFHCADAM 08:53
PROVIDERS: ATTEND Family Medicine
DX: N18.31 Chronic kidney disease, stage 3a (principal); I12.9 Hypertensive chronic kidney disease with stage 1 through stage 4 chronic kidney disease, or unspecified chronic kidney disease; R41.3 Other amnesia; R73.03 Prediabetes

== ENCOUNTER → 2020-05-01 | Outpatient (CLI) | payer MEDICARE ==
[2020-05-01 13:14] LABS: ALBUMIN 3.9 GM/DL (3.2-5.2); ALT/SGPT 29 U/L (12-78); AMYLASE 65 U/L (25-115); BILIRUBIN,TOTAL 0.5 MG/DL (0.2-1.0); BLOOD UREA NITROGEN 24 MG/DL (7-18); CALCIUM LEVEL 8.9 MG/DL (8.8-10.2); CARBON DIOXIDE LEVEL 26 MEQ/L (21-32); CHLORIDE LEVEL 102 MEQ/L (98-107); CREATININE FOR GFR 0.94 MG/DL (0.55-1.30); GLOMERULAR FILTRATION RATE > 60.0 (>32); GLUCOSE, FASTING 100 MG/DL (70-100); LIPASE 127 U/L (73-393); POTASSIUM SERUM 4.3 MEQ/L (3.5-5.1); SODIUM LEVEL 135 MEQ/L (136-145)
== END ==
LOC: M LAB 11:58
PROVIDERS: ATTEND Physician Assistant Medical
DX: R93.3 Abnormal findings on diagnostic imaging of other parts of digestive tract (principal); R63.4 Abnormal weight loss

== ENCOUNTER → 2020-05-15 | Outpatient (CLI) | payer MEDICARE ==
[~2020-05-15] MED LIST changes: +PROHANCE 279.3MG/ML 15ML VIAL As Ordered ONE
--- NOTE | 2020-05-15 17:00 | REP ---
INDICATION: ABN WT LOSS ABN IMAG DIGESTIVE TRACT. COMPARISON: Comparison study 17 May 2019.. Comparison is also made with CT enterography 29 April 2019. TECHNIQUE: Axial and coronal images include T1 and T2 weighted scans with spin echo, fast spin echo, gradient echo, in and out of phase, and dynamically acquired sequential postcontrast images. Gadolinium enhancement dose is 12 mL of intravenous ProHance. FINDINGS: There is no evidence of pleural effusion or upper abdominal ascites. There is a 19 mm cystic area in the head of the pancreas which is entirely unchanged from the study done May 17, 2019. There is mild main pancreatic duct dilation again noted also unchanged. Main pancreatic duct measures 5 mm in greatest diameter. The common bile duct and the intrahepatic bile ducts are normal in caliber. No filling defect is seen within the lumen of the gallbladder. No hydronephrosis or renal mass is observed. Normal adrenal glands are seen bilaterally. A sliding-type hiatal hernia is again noted. Dynamically acquired post contrast images demonstrate a hypervascular nodule in the right lobe of the liver unchanged from the May 17, 2019 study and measuring 10 mm in diameter. No other focal liver lesion is seen. There are tiny cortical cysts in the kidneys. IMPRESSION: No new mass or adenopathy seen. Small stable 10 mm hypervascular nodule in the liver consistent with hemangioma. Stable 19 mm pancreatic cyst. The main pancreatic duct is dilated but unchanged. <Electronically signed by Natan Moraes > 05/15/20 [id number]
== END ==
LOC: M RAD 14:50
PROVIDERS: ATTEND Physician Assistant Medical
DX: R63.4 Abnormal weight loss (principal); R93.3 Abnormal findings on diagnostic imaging of other parts of digestive tract; K44.9 Diaphragmatic hernia without obstruction or gangrene; N28.1 Cyst of kidney, acquired; K76.89 Other specified diseases of liver; K86.2 Cyst of pancreas
CPT/HCPCS: 74183; A9576

== ENCOUNTER → 2020-06-05 | Outpatient (CLI) | payer MEDICARE ==
[~2020-06-05] MED LIST changes: -PROHANCE 279.3MG/ML 15ML VIAL As Ordered ONE
--- NOTE | 2020-06-07 14:18 | REP ---
INDICATION: OTHER ABNORMAL TUMOR MARKERS. COMPARISON: MRI 05/15/2020, CT 04/29/2019. TECHNIQUE/RADIOTRACER AND DOSE: Following the intravenous administration of 6.1 mCi indium pentetreotide, images of the whole body are obtained in various projections at 4 hours, 24 hours and 48 hours post injection. SPECT images are performed in the axial, coronal and sagittal planes. FINDINGS: There is expected normal bile distribution in the liver, spleen and renal parenchyma. There is excreted activity in the bladder. Twenty-four and 48 hour delayed images show expected activity in the bowel. No tumor uptake is seen. IMPRESSION: No abnormal uptake identified. <Electronically signed by Vishnu Amos > 06/07/20 0502
== END ==
LOC: M RAD 08:43
PROVIDERS: ATTEND Physician Assistant Medical
DX: R97.8 Other abnormal tumor markers (principal)
CPT/HCPCS: 78803; 78804; A9572

== ENCOUNTER → 2020-11-09 | Outpatient (CLI) | payer MEDICARE ==
[~2020-11-09] MED LIST changes: +ACET-840 PO; +CBD OIL PO; +D31000TA2 PO; +OMEP40CA4 PO; -OMEP40CA97 PO
--- NOTE | 2020-11-09 14:37 | REPMRS ---
Patient History The patient states she has not had a clinical breast exam in over a year. Family history of colorectal cancer at age 50 or over in sister, pancreatic cancer in father. Took hormonal contraceptives for 10 years. Took estrogen for 12 years 3 months. 10 lb weight loss due to being diagnosed with osteoarthritis and changing her diet. Patient states no breast complaints today. Patient has signed MRS History Sheet. Digital Woman Screen Mammo: November 09, 2020 - Exam #: [id number] Bilateral CC and MLO view(s) were taken. Technologist: RT Talya Prior study comparison: October 27, 2019, bilateral digital woman screen mammo performed at [facility]. July 23, 2018, bilateral digital woman screen mammo performed at [facility]. July 21, 2017, digital woman screen mammo performed at [facility]. FINDINGS: There are scattered fibroglandular densities. The Volpara volumetric breast density category is:B. There has been no change in the appearance of the mammogram from the prior studies. There is a mild amount of scattered fibroglandular density which is fairly symmetric. There is no interval development of dominant mass, architectural distortion, or grouped microcalcification suggestive of malignancy. 3-D tomosynthesis shows no additional findings. Assessment: BI-RADS/ACR category 1 mammogram. Negative Mammogram. Recommendation Routine screening mammogram of both breasts in 1 year (for women over age 40). This mammogram was interpreted with the aid of an FDA-approved computer-aided dectection system. Electronically Signed By: Natan Moraes MD 11/09/20 [id number]
== END ==
LOC: M WHC 13:16
PROVIDERS: ATTEND Physician Assistant
DX: Z12.31 Encounter for screening mammogram for malignant neoplasm of breast (principal)

== ENCOUNTER → 2021-02-07 | Outpatient (REF) | payer MEDICARE ==
[~2021-02-07] MED LIST changes: +CIDA500T2 PO; +MULT1CAP3 PO; +ZINC1TAB2 PO
== END ==
LOC: M LAB REF 12:32
PROVIDERS: ATTEND Internal Medicine Medical Oncology
DX: Z00.00 Encounter for general adult medical examination without abnormal findings (principal)

== ENCOUNTER → 2021-04-04 | Outpatient (REF) | payer MEDICARE ==
[2021-04-04 13:17] LABS: BLOOD UREA NITROGEN 17 MG/DL (7-18); CHLORIDE LEVEL 102 MEQ/L (98-107); CREATININE FOR GFR 0.81 MG/DL (0.55-1.30); GLOMERULAR FILTRATION RATE > 60.0 (>32); GLUCOSE, FASTING 117 MG/DL (70-100); POTASSIUM SERUM 4.4 MEQ/L (3.5-5.1); SODIUM LEVEL 134 MEQ/L (136-145)
[2021-04-04 13:18] LABS: CALCIUM LEVEL 8.9 MG/DL (8.8-10.2); CARBON DIOXIDE LEVEL 25 MEQ/L (21-32)
== END ==
LOC: M LABDRWAD 12:18
PROVIDERS: ATTEND Internal Medicine
DX: N18.2 Chronic kidney disease, stage 2 (mild) (principal)

== ENCOUNTER → 2021-05-22 | Outpatient (REF) | payer MEDICARE ==
[2021-05-22 17:28] LABS: CALCIUM LEVEL 8.7 MG/DL (8.8-10.2); CREATININE FOR GFR 0.97 MG/DL (0.55-1.30)
== END ==
LOC: M SFHCADAM 12:38
PROVIDERS: ATTEND Physician Assistant Medical
DX: E87.1 Hypo-osmolality and hyponatremia (principal)

== ENCOUNTER → 2021-10-25 | Outpatient (REF) | payer MEDICARE ==
[~2021-10-25] MED LIST changes: -D31000TA2 PO; +VITA100093 PO
[2021-10-25 17:13] LABS: BASO # 0.1 10^3/uL (0.0-0.2); BASO % 1.1 % (0.0-1.0); EOS # 0.2 10^3/uL (0.0-0.5); EOS % 2.9 % (0.0-3.0); HEMATOCRIT 39.2 % (36.0-47.0); HEMOGLOBIN 13.3 g/dl (12.0-15.5); LYMPH # 2.3 10^3/uL (1.5-5.0); MEAN CORPUSCULAR HEMOGLOBIN 32.1 pg (27.0-33.0); MEAN CORPUSCULAR HGB CONC 33.9 g/dl (32.0-36.5); MEAN CORPUSCULAR VOLUME 94.7 fl (80.0-96.0); MONO # 0.6 10^3/uL (0.0-0.8); MONO % 8.3 % (2.0-8.0); NEUTROPHILS # 4.1 10^3/uL (1.5-8.5); NEUTROPHILS % 56.3 % (36.0-66.0); PLATELET COUNT, AUTOMATED 277 10^3/uL (150-450); RED BLOOD COUNT 4.14 10^6/uL (4.00-5.40); WHITE BLOOD COUNT 7.3 10^3/uL (4.0-10.0)
[2021-10-25 18:19] LABS: HEMOGLOBIN A1c 5.3 %
[2021-10-25 18:37] LABS: CREATININE, URINE 96.8 MG/DL; MALB URINE SIEMENS 9.8 MG/L; MAU/CREAT RATIO 10.1 MCG/MG (0.0-30.0)
[2021-10-25 18:44] LABS: ALBUMIN 4.1 GM/DL (3.2-5.2); BILIRUBIN,TOTAL 0.8 MG/DL (0.2-1.0); CALCIUM LEVEL 9.5 MG/DL (8.8-10.2); CHOLESTEROL RISK RATIO 2.337 (<5); CREATININE FOR GFR 0.95 MG/DL (0.55-1.30); GLOMERULAR FILTRATION RATE 59.2 (>32); POTASSIUM SERUM 4.6 MEQ/L (3.5-5.1); THYROID STIMULATING HORMONE 0.403 uIU/ML (0.358-3.740); TOTAL PROTEIN 6.7 GM/DL (6.4-8.2)
[2021-10-25 19:06] LABS: TOTAL 25(OH) VITAMIN D 64.3 NG/ML (30.0-100.0)
== END ==
LOC: M SFHCADAM 08:56
PROVIDERS: ATTEND Family Medicine
DX: E78.2 Mixed hyperlipidemia (principal); N18.30 Chronic kidney disease, stage 3 unspecified; I12.9 Hypertensive chronic kidney disease with stage 1 through stage 4 chronic kidney disease, or unspecified chronic kidney disease; R73.03 Prediabetes

== ENCOUNTER → 2022-05-22 | Outpatient (REF) | payer MEDICARE ==
[2022-05-22 13:18] LABS: HEMOGLOBIN A1c 5.4 % (4.0-6.0)
[2022-05-22 13:24] LABS: CREATININE, URINE 65.4 MG/DL
[2022-05-22 13:25] LABS: MAU/CREAT RATIO 12.2 MCG/MG (0.0-30.0)
[2022-05-22 15:43] LABS: ALBUMIN 3.6 G/DL (3.2-5.2); ALKALINE PHOSPHATASE 88 U/L (46-116); ALT/SGPT 20 U/L (7.0-40); AST/SGOT 32 U/L (<34); BILIRUBIN,TOTAL 0.9 MG/DL (0.3-1.2); BLOOD UREA NITROGEN 14 MG/DL (9-23); CALCIUM LEVEL 9.3 MG/DL (8.3-10.6); CARBON DIOXIDE LEVEL 25 MMOL/L (20-31); CHLORIDE LEVEL 102 MMOL/L (98-107); CHOLESTEROL LEVEL 161 MG/DL (<200); CHOLESTEROL RISK RATIO 2.31 (<5); CREATININE FOR GFR 0.79 MG/DL (0.55-1.30); GLOMERULAR FILTRATION RATE > 60.0 (>32); GLUCOSE, FASTING 111 MG/DL (74-106); HDL CHOLESTEROL 69.5 MG/DL (>40); NON-HDL-C 92 MG/DL; POTASSIUM SERUM 5.1 MMOL/L (3.5-5.1); SODIUM LEVEL 137 MMOL/L (136-145)
[2022-05-22 18:16] LABS: LDL CHOLESTEROL 68.7 MG/DL (<100); TOTAL PROTEIN 6.7 G/DL (5.7-8.2); TRIGLYCERIDES LEVEL 114 MG/DL (<150)
== END ==
LOC: M SFHCADAM 08:37
PROVIDERS: ATTEND Physician Assistant
DX: E78.2 Mixed hyperlipidemia (principal); K21.9 Gastro-esophageal reflux disease without esophagitis; E66.01 Morbid (severe) obesity due to excess calories; R73.01 Impaired fasting glucose

== ENCOUNTER → 2022-12-05 | Outpatient (REF) | payer MEDICARE ==
[~2022-12-05] MED LIST changes: +SODI1SOL4 OD; -SODI3.5O3 OD; +SODI3.5O5 OD; -SODI5OPD OD; +ZINC50TA17 PO
[2022-12-05 15:30] LABS: BASO # 0.1 10^3/uL (0.0-0.2); BASO % 0.9 % (0.0-1.0); EOS # 0.2 10^3/uL (0.0-0.5); EOS % 2.5 % (0.0-3.0); HEMATOCRIT 36.9 % (36.0-47.0); HEMOGLOBIN 12.2 g/dl (12.0-15.5); LYMPH # 1.7 10^3/uL (1.5-5.0); MEAN CORPUSCULAR HEMOGLOBIN 32.1 pg (27.0-33.0); MEAN CORPUSCULAR HGB CONC 33.1 g/dl (32.0-36.5); MEAN CORPUSCULAR VOLUME 97.1 fl (80.0-96.0); MONO # 0.8 10^3/uL (0.0-0.8); MONO % 9.8 % (2.0-8.0); NEUTROPHILS % 64.4 % (36.0-66.0); PLATELET COUNT, AUTOMATED 280 10^3/uL (150-450); WHITE BLOOD COUNT 7.7 10^3/uL (4.0-10.0)
[2022-12-05 15:55] LABS: ALBUMIN 3.8 G/DL (3.2-5.2); ALKALINE PHOSPHATASE 79 U/L (46-116); ALT/SGPT 17 U/L (7.0-40); AST/SGOT 15 U/L (<34); BILIRUBIN,TOTAL 0.5 MG/DL (0.3-1.2); BLOOD UREA NITROGEN 19 MG/DL (9-23); CALCIUM LEVEL 9.3 MG/DL (8.3-10.6); CARBON DIOXIDE LEVEL 27 MMOL/L (20-31); CHLORIDE LEVEL 99 MMOL/L (98-107); CREATININE FOR GFR 0.92 MG/DL (0.55-1.30); GLOMERULAR FILTRATION RATE > 60.0 (>32); GLUCOSE, FASTING 114 MG/DL (74-106); POTASSIUM SERUM 4.4 MMOL/L (3.5-5.1); SODIUM LEVEL 133 MMOL/L (136-145); TOTAL PROTEIN 6.5 G/DL (5.7-8.2)
[2022-12-05 15:58] LABS: FREE T4 1.27 NG/DL (0.89-1.76); THYROID STIMULATING HORMONE 0.369 uIU/ML (0.55-4.78); TOTAL 25(OH) VITAMIN D 71.8 NG/ML (20.0-100.0)
[2022-12-05 15:59] LABS: FOLATE > 24.0 NG/ML (>5.4); VITAMIN B12 LEVEL 1105 PG/ML (211-911)
== END ==
LOC: M SFHCADAM 12:10
PROVIDERS: ATTEND Physician Assistant
DX: M15.0 Primary generalized (osteo)arthritis (principal); D3A.019 Benign carcinoid tumor of the small intestine, unspecified portion; I10 Essential (primary) hypertension; N18.31 Chronic kidney disease, stage 3a; R73.03 Prediabetes

== ENCOUNTER → 2023-06-11 | Outpatient (REF) | payer MEDICARE ==
[~2023-06-11] MED LIST changes: +IRBE75TA11 PO; -IRBE75TA4 PO
[2023-06-11 16:17] LABS: APPEARANCE, URINE HAZY (CLEAR); BACTERIA, URINE AUTO 1+ (NEGATIVE); BILIRUBIN, URINE AUTO NEGATIVE (NEGATIVE); BLOOD, URINE BLOOD NEGATIVE (NEGATIVE); COLOR, URINE YELLOW (YELLOW); GLUCOSE, URINE (UA) AUTO NEGATIVE (NEGATIVE); KETONE, URINE AUTO NEGATIVE (NEGATIVE); LEUKOCYTE ESTERASE, URINE AUTO 3+ (NEGATIVE); MUCUS, URINE SMALL (NEGATIVE); NITRITE, URINE AUTO POSITIVE (NEGATIVE); PROTEIN, URINE AUTO NEGATIVE (NEGATIVE); RBC, URINE AUTO 5 /HPF (0-3); SPECIFIC GRAVITY URINE AUTO 1.004 (1.002-1.035); SQUAMOUS EPITHELIAL CELL UR AU 1 /HPF (0-6); UROBILINOGEN, URINE AUTO 0.2 mg/dL (0.0-2.0); WBC, URINE AUTO 74 /HPF (0-3)
[2023-06-11 16:32] LABS: THYROID STIMULATING HORMONE 0.34 uIU/ML (0.55-4.78)
[2023-06-11 16:33] LABS: FREE T4 1.36 NG/DL (0.89-1.76)
[2023-06-11 16:35] LABS: FERRITIN 157.6 NG/ML (7.3-270.7)
[2023-06-11 16:37] LABS: IRON (FE) 61 UG/DL (50-170); PERCENT SATURATION 21.9 % (13.2-45.0); TOTAL IRON BINDING CAPACITY 279 UG/DL (250-425)
[2023-06-11 16:38] LABS: FOLATE > 24.0 NG/ML (>5.4)
[2023-06-11 16:40] LABS: VITAMIN B12 LEVEL 1564 PG/ML (211-911)
== END ==
LOC: M SFHCADAM 12:17
PROVIDERS: ATTEND Physician Assistant
DX: D3A.019 Benign carcinoid tumor of the small intestine, unspecified portion (principal); D64.9 Anemia, unspecified; R19.7 Diarrhea, unspecified; R63.4 Abnormal weight loss; R39.15 Urgency of urination

== ENCOUNTER → 2023-06-16 | Outpatient (REF) | payer MEDICARE ==
[2023-06-16 13:36] LABS: FREE T3 2.8 PG/ML (2.3-4.2); TOTAL T3 87.5 NG/DL (60.0-181.0)
== END ==
LOC: M SFHCADAM 09:56
PROVIDERS: ATTEND Physician Assistant
DX: R79.89 Other specified abnormal findings of blood chemistry (principal); D64.9 Anemia, unspecified; D3A.019 Benign carcinoid tumor of the small intestine, unspecified portion

== ENCOUNTER 2023-10-04 18:39 | Observation (INO) | payer MEDICARE ==
[~2023-10-04] VITALS: Ht 157.5 cm; Wt 53.2 kg
[~2023-10-04 18:39] MED LIST changes: +ASPI81TA26 PO; +BRIN15DR OU; +DOXA1TAB42 PO; +GLUC1TAB90 PO; +METO1TAB32 PO; +VITA100T90 PO
[2023-10-04 19:49] LABS: BASO % 0.3 % (0.0-1.0); EOS # 0.1 10^3/uL (0.0-0.5); EOS % 0.9 % (0.0-3.0); HEMOGLOBIN 12.1 g/dl (12.0-15.5); LYMPH # 2.2 10^3/uL (1.5-5.0); LYMPH % 32.4 % (24.0-44.0); MEAN CORPUSCULAR HEMOGLOBIN 32.7 pg (27.0-33.0); MEAN CORPUSCULAR HGB CONC 35.6 g/dl (32.0-36.5); MEAN CORPUSCULAR VOLUME 91.9 fl (80.0-96.0); MONO # 0.7 10^3/uL (0.0-0.8); MONO % 10.7 % (2.0-8.0); NEUTROPHILS # 3.7 10^3/uL (1.5-8.5); NEUTROPHILS % 55.3 % (36.0-66.0); PLATELET COUNT, AUTOMATED 253 10^3/uL (150-450); WHITE BLOOD COUNT 6.8 10^3/uL (4.0-10.0)
[2023-10-04 20:02] LABS: BLOOD UREA NITROGEN 16 MG/DL (9-23); CALCIUM LEVEL 9.3 MG/DL (8.3-10.6); CARBON DIOXIDE LEVEL 21 MMOL/L (20-31); CHLORIDE LEVEL 97 MMOL/L (98-107); CREATININE FOR GFR 0.84 MG/DL (0.55-1.30); GLOMERULAR FILTRATION RATE > 60.0 (>32); GLUCOSE, FASTING 144 MG/DL (74-106); POTASSIUM SERUM 3.8 MMOL/L (3.5-5.1); SODIUM LEVEL 126 MMOL/L (136-145)
[2023-10-04] MEDS: ACETAMINOPHEN *IV* 1,000 MG in IV 1 EA IV ONE (21:40)
[2023-10-04] MEDS ORDERED: ISOVUE-370 76% 100ML VIAL As Ordered ONE (21:45)
[2023-10-04 21:53] LABS: ERYTHROCYTE SEDIMENTATION RATE 3 mm/hr (0-30)
[2023-10-04 22:03] LABS: C REACTIVE PROTEIN QUANTITATIV < 0.40 MG/DL (<1.0); CK-MB VALUE MASS < 1.0 NG/ML (<3.6)
[2023-10-04 22:04] LABS: CPK CREATINE PHOSPHOKINASE 43 U/L (34-145); MB/CK RELATIVE INDEX 2.32 (< OR =4)
[2023-10-04] MEDS ORDERED: predniSONE 20 MG TAB PO ONE (23:50)
[2023-10-04] MEDS ORDERED: PRED10PA PO (23:51)
[2023-10-05] MEDS ORDERED: ACET650T3 PO (00:40)
[2023-10-05 00:45] LABS: THYROID STIMULATING HORMONE 0.687 uIU/ML (0.55-4.78)
[2023-10-05] MEDS ORDERED: HOME MED LIST COMPLETE! XX SCH (00:45)
[2023-10-05 00:51] LABS: OSMOLALITY SERUM 268 MOSM/KG (280-301)
[2023-10-05 00:51] LABS: OSMOLALITY URINE 130 MOSM/KG (50-1400)
[2023-10-05 01:16] LABS: SODIUM,RANDOM URINE 17 MMOL/L
[2023-10-05] MEDS: NS 1,000 ML IV SCH (02:10)
[2023-10-05] MEDS ORDERED: MAALOX 30 ML SUSP *UDC PO PRN (02:10)
[2023-10-05] MEDS ORDERED: MOM 30ML SUSPENSION UDC PO PRN (02:10)
[2023-10-05] MEDS: DOXAZOSIN MESYLATE 1 MG TAB PO SCH ×2 (03:09→21:14)
[2023-10-05 03:46] LABS: PROCALCITONIN 0.04 ng/ml
[2023-10-05 06:37] LABS: HEMATOCRIT 32.5 % (36.0-47.0); HEMOGLOBIN 11.5 g/dl (12.0-15.5); MEAN CORPUSCULAR HEMOGLOBIN 32.7 pg (27.0-33.0); MEAN CORPUSCULAR HGB CONC 35.4 g/dl (32.0-36.5); MEAN CORPUSCULAR VOLUME 92.3 fl (80.0-96.0); PLATELET COUNT, AUTOMATED 238 10^3/uL (150-450); RED BLOOD COUNT 3.52 10^6/uL (4.00-5.40); WHITE BLOOD COUNT 4.3 10^3/uL (4.0-10.0)
[2023-10-05 07:07] LABS: ALBUMIN 3.2 G/DL (3.2-5.2); ALKALINE PHOSPHATASE 76 U/L (46-116); ALT/SGPT 19 U/L (7.0-40); AST/SGOT 16 U/L (<34); BILIRUBIN,TOTAL 0.9 MG/DL (0.3-1.2); BLOOD UREA NITROGEN 13 MG/DL (9-23); CALCIUM LEVEL 8.5 MG/DL (8.3-10.6); CARBON DIOXIDE LEVEL 23 MMOL/L (20-31); CHLORIDE LEVEL 103 MMOL/L (98-107); CREATININE FOR GFR 0.82 MG/DL (0.55-1.30); GLOMERULAR FILTRATION RATE > 60.0 (>32); GLUCOSE, FASTING 111 MG/DL (74-106); MAGNESIUM LEVEL 1.7 MG/DL (1.8-2.4); POTASSIUM SERUM 3.9 MMOL/L (3.5-5.1); SODIUM LEVEL 131 MMOL/L (136-145); TOTAL PROTEIN 5.4 G/DL (5.7-8.2)
[2023-10-05 07:39] LABS: MAGNESIUM LEVEL 1.6 MG/DL (1.8-2.4)
[2023-10-05 08:37] VITALS: BP 170/72; TEMP 97.7; O2SAT 98
[2023-10-05] MEDS: ASCORBIC ACID 500 MG TAB PO SCH (08:57)
[2023-10-05] MEDS: VITAMIN D 1,000 INTERNATIONAL UNITS TABLET PO SCH (08:57)
[2023-10-05] MEDS: SPIRONOLACTONE 12.5MG PER 1/2 TABLET PO SCH (08:58)
[2023-10-05] MEDS: METOPROLOL SUCC *XL* 25MG TAB (TopROL *XL*) PO SCH (08:58)
[2023-10-05] MEDS: PANTOPRAZOLE 20 MG TAB PO SCH (08:59)
[2023-10-05] MEDS: MAGNESIUM OXIDE 400MG TAB (MAG-OX) PO ONE (08:59)
[2023-10-05] MEDS: DOCUSATE SODIUM 100MG CAPSULE PO SCH (08:59)
[2023-10-05] MEDS: HEPARIN SOD (PORCINE) 5000UNITS/ML 1ML VIAL/SYRINGE SC SCH (09:00)
[2023-10-05] MEDS: BRINZOLAMIDE 1% OPHTH SUSP (AZOPT) 10ML OU SCH (09:37)
[2023-10-05] MEDS: OYSTER SHELL CALCIUM 500 MG TAB PO SCH (09:38)
[2023-10-05] MEDS: ACETAMINOPHEN TAB 650MG DOSE (2X325MG) PO PRN (09:38)
[2023-10-05 12:15] VITALS: BP 155/63; TEMP 97.9; O2SAT 97
[2023-10-05] MEDS ORDERED: PILL CUTTER 1 EACH XX ONE (14:49)
[2023-10-05] MEDS: IRBESARTAN 150MG TAB PO SCH (14:52)
[2023-10-05 15:55] LABS: BLOOD UREA NITROGEN 12 MG/DL (9-23); CALCIUM LEVEL 8.3 MG/DL (8.3-10.6); CARBON DIOXIDE LEVEL 23 MMOL/L (20-31); CHLORIDE LEVEL 104 MMOL/L (98-107); CREATININE FOR GFR 0.77 MG/DL (0.55-1.30); GLOMERULAR FILTRATION RATE > 60.0 (>32); GLUCOSE, FASTING 139 MG/DL (74-106); POTASSIUM SERUM 4.3 MMOL/L (3.5-5.1); SODIUM LEVEL 132 MMOL/L (136-145)
[2023-10-05 20:11] VITALS: BP 176/84; TEMP 97.9; O2SAT 99
[2023-10-05] MEDS: FAMOTIDINE 20 MG TAB PO SCH (21:15)
[2023-10-05] MEDS: MAGNESIUM OXIDE 400MG TAB (MAG-OX) PO SCH (21:15)
[2023-10-05] MEDS: LATANOPROST 0.005% OPHTH SOLN 2.5 ML OU SCH (21:15)
[2023-10-06 04:15] VITALS: BP 164/77; TEMP 97.9; O2SAT 98
[2023-10-06 06:29] LABS: BLOOD UREA NITROGEN 9 MG/DL (9-23); CALCIUM LEVEL 8.4 MG/DL (8.3-10.6); CARBON DIOXIDE LEVEL 22 MMOL/L (20-31); CHLORIDE LEVEL 107 MMOL/L (98-107); CREATININE FOR GFR 0.74 MG/DL (0.55-1.30); GLOMERULAR FILTRATION RATE > 60.0 (>32); GLUCOSE, FASTING 103 MG/DL (74-106); POTASSIUM SERUM 3.9 MMOL/L (3.5-5.1); SODIUM LEVEL 137 MMOL/L (136-145)
[2023-10-06] MEDS ORDERED: ENTER DRUG NAME HERE (PATIENT'S OWN MED) PO SCH (09:00)
[2023-10-06] MEDS: TORSEMIDE 10 MG TABLET PO SCH (09:06)
[2023-10-06] MEDS: MEGESTROL 40MG TAB PO SCH (10:24)
[2023-10-06 11:40] VITALS: BP 147/66; TEMP 98.1; O2SAT 99
[2023-10-06 20:54] VITALS: BP 107/63; TEMP 97.9; O2SAT 98
[2023-10-07 05:43] VITALS: BP 111/60; TEMP 97.7; O2SAT 97
[2023-10-07 09:15] VITALS: BP 139/58
[2023-10-07] MEDS ORDERED: LIDO5DIS41 TOP (13:10)
== END 2023-10-07 14:05 | disposition home or self-care (01) ==
LOC: M ED 18:39 → EDBD 18:39 → M ED INP 18:40 → M MS5PR 10-05 08:20
PROVIDERS: ADMIT Family Medicine; ATTEND Student in an Organized Health Care Education/Training Program
DX: E87.1 Hypo-osmolality and hyponatremia (principal); A04.0 Enteropathogenic Escherichia coli infection; U07.1 COVID-19; R63.0 Anorexia; R63.4 Abnormal weight loss; K52.832 Lymphocytic colitis; K57.30 Diverticulosis of large intestine without perforation or abscess without bleeding; I12.9 Hypertensive chronic kidney disease with stage 1 through stage 4 chronic kidney disease, or unspecified chronic kidney disease; E78.5 Hyperlipidemia, unspecified; A09 Infectious gastroenteritis and colitis, unspecified; K21.9 Gastro-esophageal reflux disease without esophagitis; N18.30 Chronic kidney disease, stage 3 unspecified; M17.12 Unilateral primary osteoarthritis, left knee; R73.01 Impaired fasting glucose; R00.0 Tachycardia, unspecified; K76.0 Fatty (change of) liver, not elsewhere classified; K22.70 Barrett's esophagus without dysplasia; E73.9 Lactose intolerance, unspecified; I35.8 Other nonrheumatic aortic valve disorders; K86.2 Cyst of pancreas; Z88.8 Allergy status to other drugs, medicaments and biological substances; Z88.0 Allergy status to penicillin; Z91.013 Allergy to seafood; Z90.710 Acquired absence of both cervix and uterus; Z90.89 Acquired absence of other organs; Z98.41 Cataract extraction status, right eye; Z98.42 Cataract extraction status, left eye; Z83.3 Family history of diabetes mellitus; Z81.2 Family history of tobacco abuse and dependence; Z83.79 Family history of other diseases of the digestive system; Z84.89 Family history of other specified conditions; Z82.0 Family history of epilepsy and other diseases of the nervous system; Z79.899 Other long term (current) drug therapy; Z79.82 Long term (current) use of aspirin
CPT/HCPCS: 36415; 71045; 74177; 80048; 80053; 81001; 82550; 82553; 83735; 83930; 83935; 84145; 84300; 84443; 84484; 85025; 85027; 85652; 86140; 87486; 87507; 87581; 87633; 87798; 93005; 96361; 96372; 96374; 97161; 97165; 97530; 99285; G0378; J0131; Q9967

== ENCOUNTER → 2023-10-15 | Outpatient (REF) | payer MEDICARE ==
[~2023-10-15] MED LIST changes: +ACET650T3 PO; +LIDO5DIS41 TOP; +PRED10PA PO
[2023-10-15 18:48] LABS: BASO # 0.1 10^3/uL (0.0-0.2); BASO % 0.7 % (0.0-1.0); EOS # 0.1 10^3/uL (0.0-0.5); EOS % 1.4 % (0.0-3.0); HEMATOCRIT 34.2 % (36.0-47.0); HEMOGLOBIN 11.5 g/dl (12.0-15.5); LYMPH % 27.8 % (24.0-44.0); MEAN CORPUSCULAR HEMOGLOBIN 32.3 pg (27.0-33.0); MEAN CORPUSCULAR HGB CONC 33.6 g/dl (32.0-36.5); MEAN CORPUSCULAR VOLUME 96.1 fl (80.0-96.0); MONO # 0.9 10^3/uL (0.0-0.8); MONO % 12.4 % (2.0-8.0); NEUTROPHILS # 4.1 10^3/uL (1.5-8.5); NEUTROPHILS % 57.3 % (36.0-66.0); PLATELET COUNT, AUTOMATED 342 10^3/uL (150-450); RED BLOOD COUNT 3.56 10^6/uL (4.00-5.40); WHITE BLOOD COUNT 7.1 10^3/uL (4.0-10.0)
[2023-10-15 19:10] LABS: ALBUMIN 3.6 G/DL (3.2-5.2); BILIRUBIN,TOTAL 0.7 MG/DL (0.3-1.2); CALCIUM LEVEL 9.3 MG/DL (8.3-10.6); GLOMERULAR FILTRATION RATE 55.6 (>32); POTASSIUM SERUM 4.6 MMOL/L (3.5-5.1); TOTAL PROTEIN 5.9 G/DL (5.7-8.2)
== END ==
LOC: M SFHCADAM 13:50
PROVIDERS: ATTEND Physician Assistant
DX: E87.1 Hypo-osmolality and hyponatremia (principal); N18.31 Chronic kidney disease, stage 3a

== ENCOUNTER → 2023-12-24 | Outpatient (REF) | payer MEDICARE ==
[2023-12-24 17:29] LABS: APPEARANCE, URINE CLEAR (CLEAR); BACTERIA, URINE AUTO NEGATIVE (NEGATIVE); BILIRUBIN, URINE AUTO NEGATIVE (NEGATIVE); BLOOD, URINE BLOOD NEGATIVE (NEGATIVE); COLOR, URINE STRAW (YELLOW); GLUCOSE, URINE (UA) AUTO NEGATIVE (NEGATIVE); KETONE, URINE AUTO NEGATIVE (NEGATIVE); LEUKOCYTE ESTERASE, URINE AUTO NEGATIVE (NEGATIVE); NITRITE, URINE AUTO NEGATIVE (NEGATIVE); PROTEIN, URINE AUTO NEGATIVE (NEGATIVE); RBC, URINE AUTO 0 /HPF (0-3); SPECIFIC GRAVITY URINE AUTO 1.003 (1.002-1.035); SQUAMOUS EPITHELIAL CELL UR AU 0 /HPF (0-6); UROBILINOGEN, URINE AUTO 0.2 mg/dL (0.0-2.0); WBC, URINE AUTO 0 /HPF (0-3)
== END ==
LOC: M SFHCADAM 17:10
PROVIDERS: ATTEND Physician Assistant
DX: R35.1 Nocturia (principal)

== ENCOUNTER → 2024-06-15 | Outpatient (REF) | payer MEDICARE ==
[~2024-06-15] MED LIST changes: -BRIN15DR OU; +BRIN15DR5 OU; -MULT200T7 PO; +MULT200T9 PO
[2024-06-15 14:47] LABS: BASO # 0.1 10^3/uL (0.0-0.2); EOS # 0.2 10^3/uL (0.0-0.5); EOS % 3.1 % (0.0-3.0); HEMATOCRIT 35.4 % (36.0-47.0); HEMOGLOBIN 11.8 g/dl (12.0-15.5); LYMPH # 1.5 10^3/uL (1.5-5.0); MEAN CORPUSCULAR HEMOGLOBIN 32.8 pg (27.0-33.0); MEAN CORPUSCULAR HGB CONC 33.3 g/dl (32.0-36.5); MEAN CORPUSCULAR VOLUME 98.3 fl (80.0-96.0); MONO # 0.5 10^3/uL (0.0-0.8); MONO % 9.2 % (2.0-8.0); NEUTROPHILS # 3.5 10^3/uL (1.5-8.5); NEUTROPHILS % 60.2 % (36.0-66.0); PLATELET COUNT, AUTOMATED 266 10^3/uL (150-450); WHITE BLOOD COUNT 5.9 10^3/uL (4.0-10.0)
[2024-06-15 15:20] LABS: ALBUMIN 3.7 G/DL (3.2-5.2); BILIRUBIN,TOTAL 0.7 MG/DL (0.3-1.2); CALCIUM LEVEL 9.2 MG/DL (8.3-10.6); CREATININE FOR GFR 0.97 MG/DL (0.55-1.30); GLOMERULAR FILTRATION RATE 57.6 (>32); POTASSIUM SERUM 4.5 MMOL/L (3.5-5.1); TOTAL PROTEIN 6.5 G/DL (5.7-8.2)
== END ==
LOC: M SFHCADAM 10:28
PROVIDERS: ATTEND Physician Assistant
DX: D3A.019 Benign carcinoid tumor of the small intestine, unspecified portion (principal); N18.31 Chronic kidney disease, stage 3a